=== PATIENT | male | born 2000 | race Two or more races ===

== ENCOUNTER 2019-08-28 21:32 | Emergency (ER) | payer OTHER ==
[2019-08-28] MEDS ORDERED: Alum Hydrox/Mag Hydrox/Simeth 15 ML, Lidocaine 2% 15 ML PO ONE ×2 (21:59)
--- NOTE | 2019-08-28 22:31 | EDM.PDOC ---
ED HPI GENERAL MEDICAL PROBLEM - General Chief Complaint: Gastrointestinal Problem Stated Complaint: CHEST PAIN,ABD PAIN Time Seen by Provider: 08/28/19 22:10 Source of Information: Reports: Patient, Family, RN Notes Reviewed History Limitations: Reports: No Limitations - History of Present Illness INITIAL COMMENTS - FREE TEXT/NARRATIVE: Reese presents today for complaints of acid reflux, pain to epigastric area off and on for several months. He states he has been to see the doctor and has taken omeprazole once a day, and pantoprazole one to three times a day. He denies any fever, chills, nausea, vomiting or any other concerns. Omeprazole ordered TID Pantoprazole ordered TID No primary provider Epigastric Pain Score (Numeric/FACES): 5 - Related Data Allergies Allergy/AdvReac Type Severity Reaction Status Date / Time No Known Allergies Allergy Verified 08/28/19 21:55 Home Meds: Home Meds Omeprazole 40 mg PO DAILY 08/28/19 [History] Pantoprazole Sodium [Protonix] 40 mg PO DAILY 08/28/19 [History] Past Medical History Gastrointestinal History: Reports: GERD - Past Surgical History HEENT Surgical History: Reports: Oral Surgery Social & Family History - Tobacco Use Smoking Status *Q: Never Smoker Second Hand Smoke Exposure: No - Caffeine Use Caffeine Use: Reports: None - Recreational Drug Use Recreational Drug Use: Yes Drug Use in Last 12 Months: Yes Recreational Drug Type: Reports: Marijuana/Hashish Recreational Drug Use Frequency: Weekly ED ROS GENERAL - Review of Systems Review Of Systems: See Below Constitutional: Reports: No Symptoms HEENT: Reports: No Symptoms Respiratory: Reports: No Symptoms Cardiovascular: Reports: No Symptoms GI/Abdominal: Reports: Other (epigastric pain, acid reflux). Denies: Bloody Stool, Constipation, Diarrhea, Decreased Appetite, Distension, Nausea, Stool Incontinence, Vomiting : Reports: No Symptoms Musculoskeletal: Reports: No Symptoms Skin: Reports: No Symptoms Neurological: Reports: No Symptoms Psychiatric: Reports: No Symptoms Hematologic/Lymphatic: Reports: No Symptoms Immunologic: Reports: No Symptoms ED EXAM, GI/ABD - Physical Exam Exam: See Below Exam Limited By: No Limitations General Appearance: Alert, WD/WN, No Apparent Distress Eyes: Bilateral: Normal Appearance Ears: Normal External Exam, Normal Canal, Hearing Grossly Normal, Normal TMs Nose: Normal Inspection, Normal Mucosa Throat/Mouth: Normal Inspection, Normal Lips, Normal Teeth, Normal Gums, Normal Oropharynx, Normal Voice, No Airway Compromise Head: Atraumatic, Normocephalic Neck: Normal Inspection, Supple, Non-Tender, Full Range of Motion Respiratory/Chest: No Respiratory Distress, Lungs Clear, Normal Breath Sounds, No Accessory Muscle Use, Chest Non-Tender Cardiovascular: Normal Peripheral Pulses, Regular Rate, Rhythm, No Edema, No Gallop, No Murmur, No Rub GI/Abdominal Exam: Normal Bowel Sounds, Soft, Non-Tender, No Organomegaly, No Distention, No Abnormal Bruit, No Mass. No: Guarding, Rigid, Rebound, Tender Back Exam: Normal Inspection, Full Range of Motion. No: CVA Tenderness (R), CVA Tenderness (L) Extremities: Normal Inspection, Normal Range of Motion, Non-Tender, No Pedal Edema, Normal Capillary Refill Neurological: Alert, Oriented, Normal Cognition, Normal Gait, Normal Reflexes, No Motor/Sensory Deficits Psychiatric: Normal Affect, Normal Mood Skin Exam: Warm, Dry, Intact, Normal Color, No Rash Lymphatic: No Adenopathy Course - Vital Signs Last Recorded V/S: Last Vital Signs Temp 35.9 C L 08/28/19 22:15 Pulse 84 08/28/19 22:15 Resp 16 08/28/19 22:15 BP 142/83 H 08/28/19 22:15 Pulse Ox 98 08/28/19 22:15 - Orders/Labs/Meds Meds: Medications Discontinued Medications Generic Name Dose Route Start Last Admin Trade Name Freq PRN Reason Stop Dose Admin Al Hydroxide/Mg Hydroxide 15 0 ml 08/28/19 21:59 08/28/19 22:06 ml/ Lidocaine HCl 15 ml PO 08/28/19 22:00 30 ml ONETIME ONE Administration GI cocktail tolerated well. Pain decreased from 5-6 to 3. - Re-Assessments/Exams Free Text/Narrative Re-Assessment/Exam: 08/28/19 22:15 Discussed symptoms, pain relief with use of GI cocktail, history of GERD and use of medication. All patient and his 's questions were answered. Advised to follow up with primary provider. They are in agreement with plan. Departure - Departure Time of Disposition: 22:27 Disposition: Home, Self-Care 01 Condition: Good Clinical Impression: GERD (gastroesophageal reflux disease) - Discharge Information *PRESCRIPTION DRUG MONITORING PROGRAM REVIEWED*: Not Applicable *COPY OF PRESCRIPTION DRUG MONITORING REPORT IN PATIENT POLY: Not Applicable Instructions: Gastroesophageal Reflux Disease, Adult, [id number] Referrals: PCP,None [Primary Care Provider] - Forms: ED Department Discharge Additional Instructions: You have been evaluated and treated for uncontrolled acid reflux/GERD Stop use of pantoprazole. Start keeping a diary of food/liquid intake and symptoms. Take omeprazole 20mg by mouth three times a day. Take 30 minutes prior to breakfast Take 30 minutes prior to lunch Take 1.5 to 2 hours after supper (last meal of day) Take sucralfate 4 times a day prior to eating. Avoid caffeine, high sugar foods, carbohydrate rich foods (pasta, bread). Make an appointment to establish care with a primary provider to assist with chronic acid reflux and any need for EGD. Avoid Motrin, ibuprofen and advil as this can make acid reflux worse. Sepsis Event Note (ED) - Evaluation Sepsis Screening Result: No Definite Risk - Focused Exam Vital Signs: Vital Signs Temp Pulse Resp BP Pulse Ox 08/28/19 22:15 35.9 C L 84 16 142/83 H 98 08/28/19 22:02 35.9 C L 84 16 142/83 H 98 - Assessment/Plan Assessment:: GERD (gastroesophageal reflux disease) Plan: Patient evaluated and treated for uncontrolled acid reflux/GERD Stop use of pantoprazole. Start keeping a diary of food/liquid intake and symptoms. Take omeprazole 20mg by mouth three times a day. Take 30 minutes prior to breakfast Take 30 minutes prior to lunch Take 1.5 to 2 hours after supper (last meal of day) Take sucralfate 4 times a day prior to eating. Avoid caffeine, high sugar foods, carbohydrate rich foods (pasta, bread). Make an appointment to establish care with a primary provider to assist with chronic acid reflux and any need for EGD. Avoid Motrin, ibuprofen and advil as this can make acid reflux worse.
== END 2019-08-28 22:44 | disposition home or self-care (01) ==
LOC: JP.ED 21:32
DX: K21.9 Gastro-esophageal reflux disease without esophagitis (principal); Z79.899 Other long term (current) drug therapy
CPT/HCPCS: 10160; 96365; 99283; A9270